=== PATIENT | female | born 2000 | race Caucasian/White ===

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

== ENCOUNTER → 2021-07-21 13:58 | Outpatient (CLI) | payer OTHER, SELFPAY ==
[2021-07-21 16:06] LABS: COVID19 -Nasal RAPID POSITIVE (Negative)
== END ==
PROVIDERS: Referring Provider Nurse Practitioner Family; Visit Provider Nurse Practitioner Family
DX: U07.1 COVID-19 (principal); Z20.822 Contact with and (suspected) exposure to COVID-19
CPT/HCPCS: 87635

== ENCOUNTER 2022-01-11 07:22 | Emergency (ER) | payer OTHER, SELFPAY ==
[2022-01-11] VITALS (8 sets, daily range): BP systolic 112–119; BP diastolic 56–68; PULSE 75–101; RESP 16–20; TEMP 36.6; O2SAT 97–100; BMI 20.9
[2022-01-11 07:46] LABS: Add Manual Diff / Slide Review NO; Basophils Absolute Auto 0 /uL (0-100); Basophils Percent Auto 0.3 % (0-2); Eosinophils Absolute Auto 0 /uL (0-450); Eosinophils Percent Auto 0.1 % (2-4); Hematocrit 40.8 % (36-46); Hemoglobin 14.2 g/dL (12.0-16.0); Lymphocytes Absolute Auto 400 /uL (1100-4500); Mean Corpuscular HGB Conc 34.8 % (30-36); Mean Corpuscular Hemoglobin 30.9 PG (26-34); Mean Corpuscular Volume 88.8 fL (80-100); Monocytes Absolute Auto 600 /uL (0-900); Monocytes Percent Auto 4.6 % (3-14); Neutrophils Absolute Auto 12100 /uL (1500-7000); Platelet Count 274 X10^3/uL (150-400); Red Blood Cell Count 4.59 X10^6/uL (4.0-5.2); Red Cell Distribution Width 13.6 % (11.6-14.8); White Blood Cell Count 13.1 X10^3/uL (4.5-11.0)
[2022-01-11 07:55] LABS: Alanine Aminotransferase 9 IU/L (<35); Albumin Globulin Ratio 1.9 (1.0-2.8); Alkaline Phosphatase 74 U/L (38-126); Aspartate Aminotransferase 24 IU/L (14-36); BUN Creatinine Ratio 23.9 (6-22); Bilirubin Total 1.3 mg/dL (0.2-1.3); Blood Urea Nitrogen 16 mg/dL (7-17); Calcium 9.1 mg/dL (8.4-10.2); Carbon Dioxide 22 mmol/L (22-32); Chloride 105 mmol/L (98-107); Estimated Glomerular Filt Rate > 60 mL/min (>60); Globulin 2.7 g/dL (1.7-4.1); Glucose 119 mg/dL (70-100); HEMOLYSIS < 15 (0-50); Lipase 39 U/L (23-300); Potassium 3.9 mmol/L (3.4-5.1); Sodium 136 mmol/L (137-145); Total Protein 7.7 g/dL (6.3-8.2)
[2022-01-11 07:58] LABS: Ictotest Urine Negative (Negative)
[2022-01-11 08:00] LABS: Squamous Epithelial Cell Urine 5-10 /HPF (0-5/HPF)
[2022-01-11 08:01] LABS: Bacteria Urine Many (>30); Culture Indicated Urine Cult Not Indicated; RBC Urine None Seen (0-5/HPF); WBC Urine 1-5/HPF (0-5/HPF)
[2022-01-11 08:02] LABS: Mucus Urine 1+ (Negative)
--- NOTE | 2022-01-11 08:26 | ED_ITS ---
HPI - Abdominal Pain General Chief Complaint: Abdominal Pain Stated Complaint: nausea/lower back pain Time Seen by Provider: 01/11/22 08:19 Source: patient Mode of arrival: Ambulatory Limitations: no limitations History of Present Illness HPI narrative: This is a healthy 21-year-old female comes emergency department with complaint of onset of nausea, vomiting and diarrhea about 12 hours ago. Patient states about 24 hours of abdominal discomfort started sort of epigastric has moved lower and now has mild anterior abdominal pain but mostly bilateral lower lumbar pain and states sort of a burning discomfort down her legs. She denies fevers or chills. No chest pain or shortness of breath. No nasal congestion or cough. Patient denies dysuria, urgency or frequency. No vaginal bleeding or discharge. She has not had back issues in the past. Patient denies any medical issues. No prior surgeries. No known drug allergies. She vapes tobacco, no illicit. Occasional alcohol. She does not have any known sick contacts. She is had COVID immunization x2 but no booster. Related Data Home Medications Medication Instructions Recorded Confirmed escitalopram oxalate 20 mg tablet 20 mg PO DAILY 07/21/21 11/18/21 Previous Rx's Medication Instructions Recorded ondansetron 4 mg disintegrating 4 mg PO QID PRN nausea and 01/11/22 tablet vomiting #7 tabs Allergies Allergy/AdvReac Type Severity Reaction Status Date / Time No Known Drug Allergies Allergy Verified 11/18/21 17:37 Review of Systems Review of Systems ROS Unobtainable: All systems reviewed & are unremarkable except as noted in HPI and below Patient History Social History Smoking Status: Never smoker Smoking Status: Never smoker alcohol intake frequency: a few times a month Substance Use Type: does not use Exam Narrative Exam Narrative: GENERAL: Alert and oriented x three, female in mild distress HEENT: Head normocephalic, atraumatic, EOMI, pupils reactive, face symmetric, moist mucous membranes NECK: Supple, full range of motion CARDIOVASCULAR: Regular rate and rhythm without murmurs, rubs or gallops. RESPIRATORY: Breath sounds equal bilaterally, no wheezes rales or rhonchi. ABDOMEN: Soft, nontender. Nondistended. Normoactive bowel sounds all 4 quadrants. No guarding or rebound, rigidity, no mass : No CVA tenderness BACK: No cervical, thoracic or lumbar vertebral point tenderness. Patient has normal range of motion. Patient's gait is not. Muscle strength is 5/5 in lower extremities. Sensation intact bilateral lower extremities. EXTREMITIES: Normal range of motion, no clubbing or edema. Neurovascularly intact NEUROLOGICAL: Cranial nerves II through XII grossly intact. Moving all e xtremities SKIN: Warm, dry, no petechiae, no rashes or lesions. Initial Vital Signs Initial Vital Signs: Vital Signs Temperature 97.8 F 01/11/22 07:22 Pulse Rate 99 H 01/11/22 07:22 Respiratory Rate 18 01/11/22 07:22 Blood Pressure 119/68 01/11/22 07:22 Pulse Oximetry 97 01/11/22 07:22 Oxygen Delivery Method 01/11/22 07:22 Course Orders Ordered: Discontinued Medications Ketorolac Tromethamine (Ketorolac 30 Mg/Ml Vial) 15 mg IV NOW ONE Stop: 01/11/22 09:19 Last Admin: 01/11/22 09:27 Dose: 15 mg Documented By: AMU Ondansetron HCl (Ondansetron 4 Mg/2 Ml Inj) 4 mg IV NOW ONE Stop: 01/11/22 09:19 Last Admin: 01/11/22 09:27 Dose: 4 mg Documented By: [facility]U Reevaluation(s) Reevaluation #1: Patient states nausea is better. pain about the same. No active vomiting in department. Reviewed patients findings today. Plan to patient test for COVID in the next day or 2 if persisting symptoms. Zofran as needed in urine culture. Discussed also return precautions including increasing abdominal pain particularly localizing right lower quadrant, black or bloody stools or other concerning changes. Patient expresses understanding and feels comfortable with plan. Time: 09:55 Vital Signs Vital signs: Vital Signs - 8 hr 01/11/22 07:22 01/11/22 07:29 01/11/22 07:30 Temperature 97.8 F Pulse Rate 99 H 101 H Respiratory Rate 18 20 Blood Pressure 119/68 119/68 Pulse Oximetry 97 97 Oxygen Delivery Method Room Air 01/11/22 07:30 01/11/22 08:00 01/11/22 08:30 Temperature Pulse Rate 101 H 91 H 81 Respiratory Rate 20 18 16 Blood Pressure Pulse Oximetry 98 98 100 Oxygen Delivery Method 01/11/22 09:00 01/11/22 09:30 Temperature Pulse Rate 87 75 Respiratory Rate 18 20 Blood Pressure Pulse Oximetry 99 99 Oxygen Delivery Method MDM - Abdominal Pain Lab Data Result diagrams: 01/11/22 07:30 01/11/22 07:30 Labs: Lab Results 01/11/22 01/11/22 01/11/22 Range/Units 07:30 07:30 07:31 WBC 13.1 H (4.5-11.0) X10^3/uL RBC 4.59 (4.0-5.2) X10^6/uL Hgb 14.2 (12.0-16.0) g/dL Hct 40.8 (36-46) % MCV 88.8 (80-100) fL MCH 30.9 (26-34) PG MCHC 34.8 (30-36) % RDW 13.6 (11.6-14.8) % Plt Count 274 (150-400) X10^3/uL Neut % (Auto) 92.0 H (50-75) % Lymph % (Auto) 3.0 L (25-40) % [place] % (Auto) 4.6 (3-14) % Eos % (Auto) 0.1 L (2-4) % Baso % (Auto) 0.3 (0-2) % Neut # (Auto) 71850 H (5558-9279) /uL Lymph # (Auto) 400 L (5784-0043) /uL [place]linger # (Auto) 600 (0-900) /uL Eos # (Auto) 0 (0-450) /uL Baso # (Auto) 0 (0-100) /uL Sodium 136 L (137-145) mmol/L Potassium 3.9 (3.4-5.1) mmol/L Chloride 105 (98-107) mmol/L Carbon Dioxide 22 (22-32) mmol/L BUN 16 (7-17) mg/dL Creatinine 0.67 (0.52-1.04) mg/dL Estimated GFR > 60 (>60) mL/min BUN/Creatinine Ratio 23.9 H (6-22) Glucose 119 H (70-100) mg/dL Calcium 9.1 (8.4-10.2) mg/dL Total Bilirubin 1.3 (0.2-1.3) mg/dL AST 24 (14-36) IU/L ALT 9 (<35) IU/L Alkaline Phosphatase 74 (38-126) U/L Total Protein 7.7 (6.3-8.2) g/dL Albumin 5.0 (3.5-5.0) g/dL Globulin 2.7 (1.7-4.1) g/dL Albumin/Globulin Ratio 1.9 (1.0-2.8) Lipase 39 (23-300) U/L Ur Bilirubin Confirm Negative (Negative) Urine RBC None seen (0-5/HPF) Urine WBC 1-5/hpf (0-5/HPF) Ur Squamous Epith Cells 5-10 /hpf H (0-5/HPF) Urine Bacteria Many (>30) H (None) Urine Mucus 1+ H (Negative) Ur Culture Indicated? Cult not indicated SARS-CoV-2 (PCR) (Negative) 01/11/22 Range/Units 09:19 WBC (4.5-11.0) X10^3/uL RBC (4.0-5.2) X10^6/uL Hgb (12.0-16.0) g/dL Hct (36-46) % MCV (80-100) fL MCH (26-34) PG MCHC (30-36) % RDW (11.6-14.8) % Plt Count (150-400) X10^3/uL Neut % (Auto) (50-75) % Lymph % (Auto) (25-40) % [place]linger % (Auto) (3-14) % Eos % (Auto) (2-4) % Baso % (Auto) (0-2) % Neut # (Auto) (5879-8719) /uL Lymph # (Auto) (2802-7630) /uL Bollinger # (Auto) (0-900) /uL Eos # (Auto) (0-450) /uL Baso # (Auto) (0-100) /uL Sodium (137-145) mmol/L Potassium (3.4-5.1) mmol/L Chloride (98-107) mmol/L Carbon Dioxide (22-32) mmol/L BUN (7-17) mg/dL Creatinine (0.52-1.04) mg/dL Estimated GFR (>60) mL/min BUN/Creatinine Ratio (6-22) Glucose (70-100) mg/dL Calcium (8.4-10.2) mg/dL Total Bilirubin (0.2-1.3) mg/dL AST (14-36) IU/L ALT (<35) IU/L Alkaline Phosphatase (38-126) U/L Total Protein (6.3-8.2) g/dL Albumin (3.5-5.0) g/dL Globulin (1.7-4.1) g/dL Albumin/Globulin Ratio (1.0-2.8) Lipase (23-300) U/L Ur Bilirubin Confirm (Negative) Urine RBC (0-5/HPF) Urine WBC (0-5/HPF) Ur Squamous Epith Cells (0-5/HPF) Urine Bacteria (None) Urine Mucus (Negative) Ur Culture Indicated? SARS-CoV-2 (PCR) Negative (Negative) Point of care testing: Point of Care Testing Test Results Negative Urine Dip Bedside Urine Glucose Negative Bedside Urine Bilirubin ++ 2 Bedside Urine Ketone +/- 5 Urine Specific [place] 1.030 Bedside Urine Occult Blood - Negative Bedside Urine pH 6.0 Bedside Urine Protein + 30 Bedside Urine Urobilinogen 0.2 Bedside Urine Nitrite - Negative Bedside Urine Leukocytes +/- 15 Esterase MDM Narrative Medical decision making narrative: This is a 21-year-old female comes with complaint of nausea, vomiting and diarrhea for the past 12 hours with some lower back discomfort that radiates down her legs. Patient describes it more of a burning and not myalgias but COVID is on the differential as her significant symptoms currently. Her urine shows some bacteria but does have epithelial cells she does not have any UTI symptoms clinically. Her abdominal exam is benign with otherwise reassuring labs and evaluation. Discussed with patient she is well-appearing here plan for Zofran, symptomatic control at home return precautions will send urine culture and watchful waiting. Discharge Plan Departure Patient Disposition: Home Clinical Impression: Nausea vomiting and diarrhea Instructions: Nausea and Vomiting-Adult Activity Restrictions/Additional Instructions: Follow-up if your symptoms are not improving the next 24-48 hours. Your COVID swab today is negative but if you have persistent symptoms or develops fevers I would retest as individuals tested in the 1st 24 hours symptoms often test negative with rapid testing. You may take Zofran 1 tablet every 6 hours as needed for nausea. You can take Tylenol up to a 1000 mg every 6 hours and/or ibuprofen up to 600 mg every 6 hours for pain or fever. Prescription sent to [facility] in [place]. Please return for rapidly worsening abdominal, back or flank pain, persistent vomiting, black or bloody stools, pain localizing to the right lower abdomen or other new or concerning symptoms. Prescriptions: New ondansetron 4 mg tablet,disintegrating 4 mg PO QID PRN (Reason: nausea and vomiting) Qty: 7 0RF No Action escitalopram oxalate 20 mg tablet 20 mg PO DAILY Referrals: Miscellaneous,Doctor, MD [Primary Care Provider] - Visit Report Forms: Patient Portal/API
[2022-01-11] MEDS: KETOROLAC 30 MG/ML VIAL 15 MG IV (09:27)
[2022-01-11] MEDS: ONDANSETRON 4 MG/2 ML INJ IV (09:27)
[2022-01-11 09:41] LABS: COVID19 -Nasal RAPID Negative (Negative)
== END 2022-01-11 09:59 | disposition home or self-care (01) ==
PROVIDERS: Emergency Provider Emergency Medicine
DX: R11.2 Nausea with vomiting, unspecified (principal); R19.7 Diarrhea, unspecified; M54.50 Low back pain, unspecified; Z20.822 Contact with and (suspected) exposure to COVID-19
CPT/HCPCS: 36415; 80053; 81003; 81015; 81025; 83690; 85025; 87635; 96374; 96375; 99284; C9803; J1885; J2405